=== PATIENT | male | born 1985 | race Hispanic/Latino ===

== ENCOUNTER 2024-06-19 21:52 | Inpatient (IN) | payer OTHER ==
[~2024-06-19] VITALS: Ht 167.6 cm; Wt 72.0 kg
[2024-06-19 22:07] LABS: BASOPHILS # (AUTO) 0.01 K/uL (0.00-0.20); BASOPHILS % (AUTO) 0.1 % (0.0-5.0); HEMATOCRIT 40.3 % (42-54); IMMATURE GRANULOCYTE ABSOLUTE 0.03 K/uL (0-1); LYMPHOCYTES # (AUTO) 0.3 K/uL (1.0-4.8); LYMPHOCYTES % (AUTO) 2.8 % (21.0-51.0); MEAN CORPUSCULAR HGB CONC 34.7 g/dL (32.0-36.0); MEAN CORPUSCULAR VOLUME 83.6 fL (79-99); MONOCYTES # (AUTO) 0.3 K/uL (0.1-1.0); MONOCYTES % (AUTO) 2.9 % (3.0-13.0); NEUTROPHILS # (AUTO) 10.2 K/uL (1.8-7.7); NEUTROPHILS % (AUTO) 93.9 % (40.0-77.0); PLATELET COUNT (AUTO) 208 K/uL (130-400); RED BLOOD CELL COUNT(AUTO) 4.82 MIL/uL (4.50-6.20); RED CELL DISTRIBUTION WIDTH 12.2 % (11.0-15.5); WHITE BLOOD COUNT (AUTO) 10.9 K/uL (4.8-10.8)
--- NOTE | 2024-06-19 22:17 | ERN ---
ED Note History of Present Illness Stated Complaint: FEVER, ABDOMINAL PAIN Chief Complaint: Abdominal Pain Time Seen by MD: 21:59 Dictation: The patient is a 38-year-old male with a medical history of asthma who arrived at the emergency department via EMS. He reports experiencing generalized abdominal pain that began at 8:00 a.m. today. The patient indicates that the pain is primarily located in the epigastric region, although he also experiences discomfort in both the right and left lumbar areas. He characterizes the pain as sharp and shooting, rating it as 10 out of 10, with radiation to the back. The patient believes the pain is related to the kidneys and mentions having vomited once today, but he denies experiencing any diarrhea. He also reports fever, chills has no history of smoking, alcohol, or drug use. He denies any chest pain, sore throat, dizziness or lightheadedness. Allergies: Coded Allergies: No Known Drug Allergies (Unverified Allergy, Unknown, 06/19/24) Past Medical History Past Medical History: Asthma, Kidney Stone Surgical History: None Review of System Dictation REVIEW OF SYSTEMS CONSTITUTIONAL: Denies fevers, chills, or night sweats. No unintentional weight loss reported. NEUROLOGICAL: Denies headache, amaurosis fugax, motor weakness, sensory deficit, vertigo/spinning sensation, gait abnormalities, or tremors. ENT: No hearing loss, otalgia, otorrhea, rhinitis, rhinorrhea, hoarseness, or sore throat. CARDIOVASCULAR: Denies any exertional angina, dyspnea on exertion, orthopnea, paroxysmal nocturnal dyspnea, palpitations, life-threatening arrhythmias, claudication. PULMONARY: Denies any shortness of breath, cough, phlegm/sputum, hemoptysis, pleuritic chest pain. SLEEP: Denies morning headaches, daytime somnolence or napping. Denies difficulty falling asleep, staying asleep, waking from sleep. Denies knowledge of snoring. GASTROINTESTINAL: c/o generalized abdominal pain, Denies any type of dysphagia to either liquids or solids. Denies nausea, vomiting, pyrosis, early satiety, abdominal pain, diarrhea, constipation, or changes in stool consistency or caliber. Denies coffee-ground emesis, hematemesis, hematochezia, or melanotic stools. GENITOURINARY: Denies frequency, urgency, nocturia, hematuria or incontinence (Storage/Irritative symptoms.) Low urinary stream, straining to void, urinary intermittency or hesitancy, splitting of the voiding stream, terminal dribbling. ENDOCRINOLOGIC: Denies polyuria, polydipsia, polyphagia or heat/cold intolerances. HEMATOLOGIC: Denies thrombophilia/previous clots, or coagulopathy/bleeding disorders. ONCOLOGIC: Denies personal history of malignancy. DERMATOLOGIC: Denies rashes or pruritus. PSYCHIATRIC: Denies any suicidal or homicidal ideation. Denies hallucinations. Initial Vital Sign VS Vital Signs Date Time Temp Pulse Resp B/P (MAP) Pulse Ox O2 Delivery O2 Flow Rate FiO2 06/19/24 21:55 103.3 120 20 126/80 100 Nasal Cannula 4.0 06/19/24 22:06 36 10:30 The patient was examined in ED 8 Physical Exam Dictation PHYSICAL EXAM GENERAL APPEARANCE: The patient is awake, alert, and oriented, appears in some distress. NEUROLOGICAL: Cranial nerves II-XII grossly intact. Motor is 5/5 in bilateral upper and lower extremities proximal to distal. No sensory deficits. HEENT: Face is symmetric. Pupils are equal and reactive. Extraocular movements are intact. NECK: Supple. No JVD. No thyromegaly. No submental, submandibular, pre-/postauricular, occipital or supraclavicular lymphadenopathy. CHEST: Normal chest expansion. No Telemetry. LUNGS: Absence of any rales, rhonchi or any wheezing. CARDIOVASCULAR: Regular. S1 and S2 normal. No appreciable rubs, murmurs or gallops. ABDOMEN: Soft, nontender, and nondistended. There is no rebound, voluntary guarding, or rigidity. : Deferred. No [place]. EXTREMITIES: Non-edematous and not cyanotic. No clubbing. Good capillary refill. SKIN: No skin breakdown. Results (Laboratory/Radiology) Laboratory/Radiology Laboratory Tests Test 06/19/24 21:52 06/19/24 21:59 06/19/24 22:24 Influenza Type A Antigen Negative For Type A Influenza Type B Antigen Negative For Type B SARS-CoV-2, RNA, NAAT NEGATIVE SARS CoV-2 Group A Streptococcus Rapid negative (NEGATIVE) White Blood Count 10.9 K/uL (4.8-10.8) H Red Blood Count 4.82 MIL/uL (4.50-6.20) Hemoglobin 14.0 g/dL (14.0-18.0) Hematocrit 40.3 % (42-54) L Mean Corpuscular Volume 83.6 fL (79-99) Mean Corpuscular Hemoglobin 29.0 pg (27.0-33.0) Mean Corpuscular Hemoglobin Concent 34.7 g/dL (32.0-36.0) Red Cell Distribution Width 12.2 % (11.0-15.5) Platelet Count 208 K/uL (130-400) Mean Platelet Volume 9.3 fL (7.5-10.5) Immature Granulocyte % (Auto) 0.3 % (0-1) Neutrophils (%) (Auto) 93.9 % (40.0-77.0) H Lymphocytes (%) (Auto) 2.8 % (21.0-51.0) L Monocytes (%) (Auto) 2.9 % (3.0-13.0) L Eosinophils (%) (Auto) 0.0 % (0.0-8.0) Basophils (%) (Auto) 0.1 % (0.0-5.0) Neutrophils # (Auto) 10.2 K/uL (1.8-7.7) H Lymphocytes # (Auto) 0.3 K/uL (1.0-4.8) L Monocytes # (Auto) 0.3 K/uL (0.1-1.0) Eosinophils # (Auto) 0.00 K/uL (0.00-0.70) Basophils # (Auto) 0.01 K/uL (0.00-0.20) Absolute Immature Granulocyte (auto 0.03 K/uL (0-1) Nucleated Red Blood Cells 0.0 % (0.0-0.19) White Cell Morphology Comment See comments Sodium Level 136 mmol/L (136-145) Potassium Level 3.9 mmol/L (3.5-5.1) Chloride Level 101 mmol/L (101-111) Carbon Dioxide Level 29 mmol/L (21-32) Blood Urea Nitrogen 15 mg/dL (7-18) Creatinine 1.2 mg/dL (0.5-1.3) Glomerular Filtration Rate Calc 79 mL/min (>90) Random Glucose 103 mg/dL (70-105) Lactic Acid Level 1.2 mmol/L (0.8-2.5) Total Calcium 8.6 mg/dL (8.5-10.1) Total Creatine Kinase 120 U/L (21-232) Troponin I High Sensitivity 13 ng/L (4-75) Lipase 37 U/L (16-77) Urine Color YELLOW (YELLOW) Urine Appearance CLEAR (CLEAR) Urine pH 7.5 (5.0-8.0) Urine Specific [place] 1.025 (1.001-1.031) Urine Protein 20 mg/dL (NEGATIVE) H Urine Glucose (UA) NEGATIVE mg/dL (NEGATIVE) Urine Ketones 20 mg/dL (NEGATIVE) H Urine Occult Blood NEGATIVE (NEGATIVE) Urine Nitrate NEGATIVE (NEGATIVE) Urine Bilirubin NEGATIVE mg/dL (NEGATIVE) Urine Urobilinogen 0.2 mg/dL (0.2-1.0) Urine Leukocyte Esterase NEGATIVE Giuseppe/uL Urine RBC 6-10 /HPF (0-1) H Urine WBC 0-1 /HPF (0-1) Urine Squamous Epithelial Cells RARE /HPF (0-2) Urine Bacteria None /HPF (None Seen) Urine Opiates Screen NEGATIVE (NEGATIVE) Urine Barbiturates Screen NEGATIVE (NEGATIVE) Urine Phencyclidine Screen NEGATIVE (NEGATIVE) Urine Amphetamines Screen NEGATIVE (NEGATIVE) Urine Benzodiazepines Screen NEGATIVE (NEGATIVE) Urine Cocaine Screen NEGATIVE (NEGATIVE) Urine Marijuana (THC) Screen NEGATIVE (NEGATIVE) EKG Comment: Rate 115, sinus tachycardia Atrial premature complexes Nonspecific T-wave abnormalities VT [address] Scan Comment: [place] [address] IMAGING REPORT Signed PATIENT: KWAKU LNOG MR#: [id number] : 1985 SEX: M AGE: 38 LOCATION: ED ORDER 23 STATUS: REG REPORT#: [id number] SERVICE 21 REASON: Generalized abdominal pain, sepsis ORDERING PHYSICIAN: POOJA CHAMORRO MD PROCEDURE: ABD PEL WO - CT ABDOMEN/PELVIS W/O CONTRAST CT ABDOMEN/PELVIS W/O CONTRAST HISTORY: Abdominal pain COMPARISON: None TECHNIQUE: Multiple sequential axial images of the abdomen and pelvis were obtained from the dome of the diaphragm through symphysis pubis. Patient was not given contrast through intravenous route. Oral contrast was not given. FINDINGS: Tiny left pleural effusion is seen. There are bilateral pulmonary infiltrates. Degenerative changes of the thoracolumbar spine are present. The heart is not enlarged. Liver measures 17 cm. The liver, spleen, adrenal glands and pancreas are unremarkable. There is no evidence of hydronephrosis bilaterally. No evidence of renal stone is seen. Fecal material is seen in the colon. There are normal size retroperitoneal and mesenteric lymph nodes. No ascites is seen. No CT evidence of acute appendicitis is seen. Pelvic sidewalls are symmetric bilaterally. Bladder is poorly distended. IMPRESSION: 1. Bilateral pulmonary infiltrates. Fecal material in the colon. CT was performed with one or more following dose reduction techniques: automated exposure control, adjustment of the mA and kv according to patient's size, or use of a iterative reconstruction technique. DICTATED BY: TRELL HORNE MD DATE: 06/19/242337 ELECTRONICALLY SIGNED BY: TRELL HORNE MD DATE: 06/19/24 [address] [place] [address] IMAGING REPORT Signed PATIENT: KWAKU LONG MR#: [id number] : 1985 SEX: M AGE: 38 LOCATION: [facility] ORDER 10 STATUS: REG REPORT#: [id number] SERVICE 10 REASON: Pneumonia ORDERING PHYSICIAN: POOJA CHAMORRO MD PROCEDURE: CHEST WO - CT CHEST W/O CONTRAST CT CHEST W/O CONTRAST HISTORY: Pneumonia COMPARISON: None TECHNIQUE: Multiple sequential axial images of the chest were obtained from the thoracic inlet through upper abdomen. Patient was not given contrast through intravenous route. FINDINGS: There are bilateral lower lobe and right middle lobe pulmonary infiltrates. Bronchiectasis changes are seen. Tiny left pleural effusion is seen. Fatty changes of the liver are noted There is no evidence of pneumothorax. There are normal size mediastinal and hilar lymph nodes. The heart is not enlarged. Degenerative changes of the thoracolumbar spine are present. There is no evidence of adrenal nodule. IMPRESSION: 1. Right lower lobe and bilateral lower lobe pulmonary infiltrates. CT was performed with one or more following dose reduction techniques: automated exposure control, adjustment of the mA and kv according to patient's size, or use of a iterative reconstruction technique. DICTATED BY: TRELL HORNE MD DATE: 06/19/242327 ELECTRONICALLY SIGNED BY: TRELL HORNE MD DATE: 06/19/242340 ED Course ED Course Orders Procedure Category Date Status Time Iv Insertion CPOE 06/19/24 Transmitted 21:53 Pulse Ox(Continuous) RT 06/19/24 Transmitted 21:53 Vital Signs Per CPOE 06/19/24 Transmitted Routine 21:53 12 Lead Ekg Tracing- EKG 06/19/24 Logged Technical 21:53 Cbc With Differential LAB 06/19/24 Complete 21:53 Blood Cult KHALIDA 06/19/24 In Process 21:53 Urinalysis Profile LAB 06/19/24 Complete 21:53 Culture Urine KHALIDA 06/19/24 In Process 21:53 Creatine Kinase, Total LAB 06/19/24 Complete 21:53 Troponin I High LAB 06/19/24 Complete Sensitivity 21:53 Lactic Acid LAB 06/19/24 Complete 21:53 Basic Metabolic Panel LAB 06/19/24 Complete 21:53 Influenza Type A & B, LAB 06/19/24 Complete Rapid 21:54 Rapid (Group A Strep) LAB 06/19/24 Complete 21:54 Covid Rna Naat LAB 06/19/24 Complete 21:54 Lipase LAB 06/19/24 Complete 22:12 0.9%Nacl 1000ml (Ns PHA 06/19/24 Complete 1000ml) 22:30 Ketorolac PHA 06/19/24 Complete Tromethamine 15mg/Ml 22:30 Drug Screen Urine LAB 06/19/24 Complete 22:17 Ct Abdomen/Pelvis W/O CT 06/19/24 Resulted Contrast 22:22 Acetaminophen 500mg PHA 06/19/24 Complete Tab (Tylenol 500mg T 23:00 Ct Chest W/O Contrast CT 06/19/24 Resulted 23:11 Ceftriaxone 1g Vial PHA 06/19/24 Complete (Rocephine 1g Inj) 23:30 Azithromycin 500mg+Ns PHA 06/19/24 Complete 250ml (Azithromyci 23:30 Admit Orders ADM 06/20/24 Transmitted 00:01 Cefepime Hcl 1 Gm PHA 06/20/24 In Process Vial (Maxipime 1 Gm Vi 00:30 Doxycycline Hyclate PHA 06/20/24 In Process (Doxycycline Hyclate 09:00 Acetaminophen 325 Tab PHA 06/20/24 In Process (Tylenol 325mg Tab 00:30 Acetaminophen 325 Tab PHA 06/20/24 In Process (Tylenol 325mg Tab 00:30 Enoxaparin Sodium 30 PHA 06/20/24 In Process Mg/0.3 Ml (Lovenox) 09:00 Regular DIET 06/20/24 Transmitted Breakfast Cbc Without LAB 06/20/24 Logged Differential 06:00 Basic Metabolic Panel LAB 06/20/24 Logged 06:00 Magnesium LAB 06/20/24 Logged 06:00 Ipratropium/Albuterol PHA 06/20/24 In Process Neb (Duoneb) 00:30 Ondansetron 4mg Inj PHA 06/20/24 In Process (Zofran 4mg Inj) 00:30 Current Medications Medications (Trade) Dose Ordered Sig/Asha Route PRN Reason Start Time Stop Time Status Last Admin Dose Admin Acetaminophen (TYLenol 500MG TAB) 1,000 mg ONCE ONCE PO 06/19/24 23:00 06/19/24 23:01 DC 06/19/24 22:35 Azithromycin 250 ml @ 250 mls/hr ONCE ONCE IVPB 06/19/24 23:30 06/20/24 00:29 DC 06/19/24 23:29 Ceftriaxone Sodium (ROCEphine 1G INJ) 1 gm ONCE ONCE IVPB 06/19/24 23:30 06/19/24 23:31 DC 06/19/24 23:29 Ketorolac Tromethamine (toRADol) 15 mg ONCE ONCE IM 06/19/24 22:30 06/19/24 22:31 DC 06/19/24 22:29 Sodium Chloride 1,000 ml @ 0 mls/hr ONCE ONCE IV 06/19/24 22:30 06/19/24 22:31 DC 06/19/24 22:29 Vital Signs Date Time Temp Pulse Resp B/P (MAP) Pulse Ox O2 Delivery O2 Flow Rate FiO2 06/20/24 00:52 99.3 99 20 107/67 98 Nasal Cannula* 2 28 06/19/24 23:39 100.2 100 20 110/63 98 Nasal Cannula* 2 28 06/19/24 22:35 103.3 06/19/24 22:06 103.3 120 20 126/80 100 Nasal Cannula* 4 36 06/19/24 21:55 103.3 120 20 126/80 100 Nasal Cannula 4.0 10:45 The patient was assessed in the Emergency Department 8. Upon arrival, the vital signs recorded were a temperature of 103.3F, a pulse rate of 120 beats per minute, a blood pressure of 126/80 mmHg, and a respiratory rate of 20 breaths per minute. To assist with respiratory support, the patient was started with 4 liters of oxygen. As the patient is a [place] speaker, the nurse facilitated communication through translation. The patient reported experiencing generalized abdominal pain. Although the patient appeared alert and responsive to questions, signs of discomfort were evident. He was in [place] and currently in a process of getting deported from [facility] due to immigration issues. The patient meets the criteria for SIRS. We will proceed with laboratory tests and radiological examinations to exclude any potential infectious processes. Based on the results of these tests, we will determine the necessity for any urgent treatment or inpatient admission. In the interim, we will provide treatment with Tylenol and an intravenous fluid bolus. Continuous monitoring of the patient's condition will be maintained. 11:30 The labs were reviewed and showed WBC 10.9, neutrophils percentage 93.9, lymphocyte percentage 2.[address] abdomen and pelvis showed bilateral pulmonary infiltrates, CT chest showed bilateral lower lobe pulmonary infiltrates. The patient meets sepsis criteria given initial presentation and the source of infection being identified. The patient will require inpatient hospitalization for the management of pneumoniae. Dr. Salazar was informed about the patient and he accepted the admission. Medical Decision Making [facility] Differential diagnosis: Sepsis, Bilateral pneumonia, Acute respiratory failure Rationale: Tests considered and ordered secondary to shared decision making include: Previous outside records reviewed: Old ER visits. Risk of complication and/or morbidity or mortality of patient management: None Medications-Per medication reconciliation Need for hospitalization: Patient does meet criteria for hospitalization. Need for emergency major/minor surgery: No There are no social concerns with this patient. Prescription drug management Prescriptions will include symptomatic care Patient's prior external medical records from other ER visits were reviewed by me as indicated. Prior testing and results from previous visits were reviewed. Prior tests were taken into account with medical decision making and resource utilization, independent historian/historians were used to obtain complete medical history. I independently interpreted the test that were performed, results were reviewed by me and considered findings on radiology if ordered. DX & DISP Disposition: Inpatient Departure Impression: Primary Impression: Sepsis Additional Impressions: Pneumonia, Acute respiratory failure Critical Time: 30 minutes (Critical Care Procedure NoteAuthorized and Performed by: meTotal critical care time: Approximately 36 minutesDue to a high probability of clinically significant, life threatening deterioration, the patient required my highest level of preparedness to intervene emergently and I personally spent this critical care time directly and personally managing the patient. This critical care time included obtaining a history; examining the patient; pulse oximetry; ordering and review of studies; arranging urgent treatment with development of a management plan; evaluation of patient's response to treatment; frequent reassessment; and, discussions with other providers.This critical care time was performed to assess and manage the high probability of imminent, life-threatening deterioration that could result in multi-organ failure. It was exclusive of separately billable procedures and junior ting other patients and teaching time.Please see MDM section and the rest of the note for further information on patient assessment and treatment.) Condition: Stable I have reviewed, & agreed with my scribe's, documentation. I have reviewed the case, and I agree with, Diagnosis and Plan I have examined patient, & reviewed all documents, & agreed W/ the Diagnosis, and Plan I performed a substantive portion of the visit. I have reviewed and personally made and approve the management plan that is documented in the notes by myself with ISAEL/resident. I acknowledged full responsibility for the patient's management plan. 38-year-old male age with a pneumonia confirmed by CT. Meets sepsis criteria. Received IV fluids and antibiotics. On sepsis focused re- evaluation after the fluids and antibiotics patient was stable perfusion. Admitted for IV antibiotics. POOJA CHAMORRO MD Jun 19, 2024 22:17 JILL GREENWOOD DO Jun 20, 2024 01:09
[2024-06-19 22:20] LABS: CREATININE 1.2 mg/dL (0.5-1.3); POTASSIUM 3.9 mmol/L (3.5-5.1)
[2024-06-19 22:20] LABS: RAPID GROUP A STREP negative (NEGATIVE)
[2024-06-19 22:26] LABS: SARS-CoV-2, RNA, NAAT NEGATIVE SARS CoV-2 (NEGATIVE)
[2024-06-19] MEDS: ketOROlac 15MG/ML VIAL (15MG/ML) IM ONE (22:29)
[2024-06-19] MEDS: 0.9%NACL 1000ML 1,000 ML IV ONE (22:29)
[2024-06-19 22:30] LABS: INFLUENZA TYPE A Negative For Type A (NEGATIVE); INFLUENZA TYPE B Negative For Type B (NEGATIVE)
[2024-06-19] MEDS: acetaMINOPHEN 500 MG TABLET PO ONE (22:35)
[2024-06-19 22:53] LABS: APPEARANCE,URINE CLEAR (CLEAR); BILIRUBIN,URINE NEGATIVE (NEGATIVE); COLOR,URINE YELLOW (YELLOW); GLUCOSE, URINE (UA) NEGATIVE (NEGATIVE); KETONES,URINE 20 mg/dL (NEGATIVE); LEUKOCYTE ESTERASE ,URINE NEGATIVE Leu/uL (NEGATIVE); NITRATE,URINE NEGATIVE (NEGATIVE); OCCULT BLOOD,URINE NEGATIVE (NEGATIVE); PH,URINE 7.5 (5.0-8.0); PROTEIN,URINE 20 mg/dL (NEGATIVE); UROBILINOGEN,URINE 0.2 mg/dL (0.2-1.0)
[2024-06-19 22:56] LABS: ADD UA MICROSCOPIC YES
[2024-06-19 22:57] LABS: MUCUS,URINE MOD LPF (None Seen); SQUAMOUS EPITHELIAL CELL,UR RARE /HPF (0-2); WBC,URINE 0-1 /HPF (0-1)
[2024-06-19 23:01] LABS: AMPHET/METH SCREEN,URINE NEGATIVE (NEGATIVE); BARBITURATE SCREEN, URINE NEGATIVE (NEGATIVE); BENZODIAZEPINES SCREEN,URINE NEGATIVE (NEGATIVE); CANNABINOID SCREEN,URINE NEGATIVE (NEGATIVE); COCAINE SCREEN,URINE NEGATIVE (NEGATIVE); OPIATE SCREEN,URINE NEGATIVE (NEGATIVE); PHENCYCLIDINE SCREEN,URINE NEGATIVE (NEGATIVE)
--- NOTE | 2024-06-19 23:21 | NUR ---
back from ct scan
[2024-06-19] MEDS: AZITHROMYCIN 500MG+NS 250ML 250 ML IVPB ONE (23:29)
[2024-06-19] MEDS: cefTRIAXone 1G VIAL IVPB ONE (23:29)
--- NOTE | 2024-06-19 23:41 | HMCIMG ---
CT CHEST W/O CONTRAST HISTORY: Pneumonia COMPARISON: None TECHNIQUE: Multiple sequential axial images of the chest were obtained from the thoracic inlet through upper abdomen. Patient was not given contrast through intravenous route. FINDINGS: There are bilateral lower lobe and right middle lobe pulmonary infiltrates. Bronchiectasis changes are seen. Tiny left pleural effusion is seen. Fatty changes of the liver are noted There is no evidence of pneumothorax. There are normal size mediastinal and hilar lymph nodes. The heart is not enlarged. Degenerative changes of the thoracolumbar spine are present. There is no evidence of adrenal nodule. IMPRESSION: 1. Right lower lobe and bilateral lower lobe pulmonary infiltrates. CT was performed with one or more following dose reduction techniques: automated exposure control, adjustment of the mA and kv according to patient's size, or use of a iterative reconstruction technique.
--- NOTE | 2024-06-19 23:54 | HMCIMG ---
CT ABDOMEN/PELVIS W/O CONTRAST HISTORY: Abdominal pain COMPARISON: None TECHNIQUE: Multiple sequential axial images of the abdomen and pelvis were obtained from the dome of the diaphragm through symphysis pubis. Patient was not given contrast through intravenous route. Oral contrast was not given. FINDINGS: Tiny left pleural effusion is seen. There are bilateral pulmonary infiltrates. Degenerative changes of the thoracolumbar spine are present. The heart is not enlarged. Liver measures 17 cm. The liver, spleen, adrenal glands and pancreas are unremarkable. There is no evidence of hydronephrosis bilaterally. No evidence of renal stone is seen. Fecal material is seen in the colon. There are normal size retroperitoneal and mesenteric lymph nodes. No ascites is seen. No CT evidence of acute appendicitis is seen. Pelvic sidewalls are symmetric bilaterally. Bladder is poorly distended. IMPRESSION: 1. Bilateral pulmonary infiltrates. Fecal material in the colon. CT was performed with one or more following dose reduction techniques: automated exposure control, adjustment of the mA and kv according to patient's size, or use of a iterative reconstruction technique.
[2024-06-20] VITALS (14 sets, daily range): BP systolic 116–147; BP diastolic 65–89; PULSE 98–125; RESP 18–21; TEMP 98.9–102.9; O2SAT 96–100
[2024-06-20] MEDS: ceFEPime HCL 1 GM VIAL IVPB SCH (00:52)
--- NOTE | 2024-06-20 01:05 | NUR ---
REPORT GIVEN TO SUSHMA GARZON
[2024-06-20] MEDS: 0.9%NACL 1000ML 1,000 ML IV ONE (01:10)
[2024-06-20] MEDS: acetaMINOPHEN 325 MG TAB PO PRN ×2 (02:19→08:36)
[2024-06-20 06:50] LABS: CREATININE 1.1 mg/dL (0.5-1.3); MAGNESIUM 1.8 mg/dL (1.80-2.40); POTASSIUM 4.3 mmol/L (3.5-5.1)
[2024-06-20 06:55] LABS: HEMATOCRIT 40.2 % (42-54); MEAN CORPUSCULAR HEMOGLOBIN 28.8 pg (27.0-33.0); MEAN CORPUSCULAR HGB CONC 34.6 g/dL (32.0-36.0); MEAN CORPUSCULAR VOLUME 83.4 fL (79-99); RED BLOOD CELL COUNT(AUTO) 4.82 MIL/uL (4.50-6.20); RED CELL DISTRIBUTION WIDTH 12.3 % (11.0-15.5); WHITE BLOOD COUNT (AUTO) 8.7 K/uL (4.8-10.8)
--- NOTE | 2024-06-20 07:01 | EKG ---
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
[2024-06-20] MEDS: DOXYCYCLINE HYCLATE 100 MG TABLET PO SCH (08:35)
[2024-06-20] MEDS: ENOXAPARIN SODIUM 30 MG/0.3 ML SQ SCH (08:37)
--- NOTE | 2024-06-20 13:18 | NUR ---
LESLYP Per Jordana Leija Ballroom Dancer, patient will be returning to [facility] upon discharge. Transportation is prearranged. Addendum: 06/20/24 at 1320 by LILLY CARDONA RN CM Amended: Links added.
--- NOTE | 2024-06-20 19:12 | HP ---
DATE OF SERVICE: 06/20/2024. PRESENTING COMPLAINT: Cough and fever. HISTORY OF PRESENT ILLNESS: This is a 38-year-old male originally from [place] with history of asthma, nephrolithiasis, who presented to the hospital with above complaint. The patient was brought in from [facility] with cough and shortness of breath. The patient also complained of some fever. T-max in the emergency room was 103. The patient complained of abdominal pain which he localized to the epigastric area. CT of the abdomen and pelvis shows constipation and bilateral infiltrate. CT of the chest shows bilateral infiltrates. Urine toxicology was negative. Influenza and COVID antigen came back negative. PAST MEDICAL HISTORY: * Asthma. * Nephrolithiasis. PAST SURGICAL HISTORY: Left foot surgery. ALLERGIES: No known drug allergy. HOME MEDICATIONS: None. SOCIAL HISTORY: The patient is originally from [place]. The patient drinks. Denies tobacco or illicit drug use. FAMILY HISTORY: Noncontributory. REVIEW OF SYSTEMS: CONSTITUTIONAL: Positive for fever and chills. No weight loss or night sweats. EYES: No eye pain, no photophobia or diplopia. HENT: No sore throat, no rhinorrhea or earache. NECK: No neck pain or neck swelling. RESPIRATORY: Positive for cough. No hemoptysis or pleuritic pain. CARDIOVASCULAR: No chest pain, no palpitation or orthopnea. GASTROINTESTINAL: Positive for epigastric pain. No nausea, no vomiting. No diarrhea. GENITOURINARY: No dysuria, urgency, or urinary frequency. CENTRAL NERVOUS SYSTEM: No headache, dyspnea, or slurred speech. PSYCHIATRY: No depression. No suicidal ideation. PHYSICAL EXAMINATION: GENERAL: Young male, awake. VITAL SIGNS: Temperature 103.3, pulse 98, respiratory rate 22. EYES: No icterus. Pupils equal and reactive. HENT: No oral thrush seen. Moist oral mucosa. NECK: Supple. No JVD or thyromegaly. LUNGS: Good air entry. No rales, no rhonchi. CARDIOVASCULAR SYSTEM: S1, S2 regular. No murmur heard. ABDOMEN: Full, soft, nontender. Bowel sound is present. CENTRAL NERVOUS SYSTEM: Awake, alert, oriented x 3. No focal deficits. SKIN: No rashes, no itchiness. LYMPHATIC: No peripheral lymphadenopathy. BACK: No deformity, no pressure ulcer. MUSCULOSKELETAL: No joint swelling, erythema, or tenderness. LABORATORY DATA: Sodium 136, potassium 3.9, BUN 15, creatinine 1.2. WBC 10.9, hemoglobin 14.0, platelets 208. Influenza antigen negative. Urine toxicology negative. Urinalysis negative. RADIOLOGY: CT chest showed bilateral infiltrate. ASSESSMENT: A 38-year-old male presenting with fever and cough. CURRENT PROBLEMS: Include: * Sepsis. * Pneumonia. * Shortness of breath. PLAN: * Admit the patient to medical floor. * Start the patient on cefepime. * Start the patient on doxycycline. * Tylenol as needed for pain and fever. * Zofran as needed for nausea and vomiting. * Regular diet. * Monitor electrolytes and correct as needed. TID: [id number] RECEIPT: [id number]
[2024-06-20] MEDS: ondanSETRON 4MG INJ IVP PRN (21:02)
[2024-06-21] VITALS (12 sets, daily range): BP systolic 113–129; BP diastolic 55–82; PULSE 91–108; RESP 17–20; TEMP 97.7–102.9; O2SAT 96–99
[2024-06-21 05:27] LABS: BASOPHILS # (AUTO) 0.01 K/uL (0.00-0.20); BASOPHILS % (AUTO) 0.2 % (0.0-5.0); HEMATOCRIT 40.9 % (42-54); IMMATURE GRANULOCYTE ABSOLUTE 0.02 K/uL (0-1); LYMPHOCYTES # (AUTO) 0.9 K/uL (1.0-4.8); LYMPHOCYTES % (AUTO) 17.8 % (21.0-51.0); MEAN CORPUSCULAR HEMOGLOBIN 28.8 pg (27.0-33.0); MEAN CORPUSCULAR VOLUME 84.7 fL (79-99); MONOCYTES # (AUTO) 0.5 K/uL (0.1-1.0); MONOCYTES % (AUTO) 9.1 % (3.0-13.0); NEUTROPHILS # (AUTO) 3.7 K/uL (1.8-7.7); NEUTROPHILS % (AUTO) 72.5 % (40.0-77.0); PLATELET COUNT (AUTO) 180 K/uL (130-400); RED BLOOD CELL COUNT(AUTO) 4.83 MIL/uL (4.50-6.20); RED CELL DISTRIBUTION WIDTH 12.2 % (11.0-15.5); WHITE BLOOD COUNT (AUTO) 5.1 K/uL (4.8-10.8)
[2024-06-21 05:53] LABS: ALBUMIN 3.3 g/dL (3.5-5.0); BILIRUBIN,TOTAL 0.5 mg/dL (0.2-1.0); CREATININE 1.3 mg/dL (0.5-1.3); MAGNESIUM 1.7 mg/dL (1.80-2.40); POTASSIUM 3.4 mmol/L (3.5-5.1); TOTAL PROTEIN, SERUM 6.9 g/dL (6.0-8.3)
[2024-06-21] MEDS ORDERED: PoTASSium chloRIDE 20MEQ/100ML 100 ML IV PRN (06:00)
[2024-06-21] MEDS ORDERED: PoTASSium chl 10% ELIXIR 20MEQ 20 MEQ/15 ML UDCUP PO PRN (06:00)
[2024-06-21] MEDS: MAGNESIUM 2GM PREMIX 50ML 50 ML IV PRN (06:35)
[2024-06-21] MEDS: PoTASSium chloRIDE 20MEQ ER 20 MEQ ERTAB PO PRN (06:35)
[2024-06-21] MEDS: IpraTROPium/alBUTERol SULFATE 3 ML SOLUTION IH PRN (07:00)
--- NOTE | 2024-06-21 13:17 | PN ---
INFECTIOUS DISEASE PROGRESS NOTE Date of Service: Jun 21, 2024 SUBJECTIVE: This is a 38-year-old male patient who was admitted for evaluation of fever and cough. On admission to the hospital patient had a fever of 103.3 and the WBC was 10.9. Patient was tested for influenza and COVID-19 results came back negative. A CT of the abdomen and pelvis was done which showed bilateral pulmonary infiltrates. A CT chest confirmed right lower lobe and bilateral lower lobes pulmonary infiltrates. Patient has been started on cefepime and doxycycline. Patient had a low-grade fever of 102.9 at 3:00 a.m. this morning and current temperature is 98.1. The WBC has trended down to 5.1. No reports of nausea or vomiting. We will continue to follow patient's care. PHYSICAL EXAM EYES: Anicteric. Pupils equal and reactive. HENT: No oral thrush seen, moist Oral mucosa. NECK: Supple, no JVD or thyromegaly. LUNGS: Good air entry. No rales, no rhonchi. CARDIOVASCULAR: S1, S2 regular. No murmur heard. ABDOMEN: Soft, non tender, bowel sounds present, no organomegaly. CENTRAL NERVOUS SYSTEM: Awake, alert, oriented x 3. SKIN: No rashes, no swelling. LYMPHATICS: No peripheral lymphadenopathy. MUSCULOSKELETAL: No joint swelling, erythema or tenderness. EXTREMITIES: No cyanosis or clubbing. Left Great toe amputation. BACK: No deformity, no pressure ulcer. GENITOURINARY: No dysuria or hematuria. Vital Sign (Last 12 Hours) 06/21/24 06/21/24 06/21/24 06/21/24 03:41 03:55 04:00 05:25 Temp 100.0 102.9 100.0 98.8 Pulse 108 Resp 17 B/P (MAP) 126/79 Pulse Ox 96 O2 Delivery Room Air 06/21/24 06/21/24 06/21/24 06/21/24 07:02 07:03 07:50 11:01 Temp 98.2 Pulse 96 96 95 96 Resp 18 18 18 18 B/P (MAP) 120/82 Pulse Ox 98 O2 Delivery N/A Room Air Room Air FiO2 21 06/21/24 11:29 Temp 98.1 Pulse 104 Resp 18 B/P (MAP) 121/63 Pulse Ox 97 O2 Delivery Room Air Intake & Output (last 24hrs) 06/20/24 06/20/24 06/21/24 15:00 23:00 07:00 Intake Total 50.0 ml Balance 50.0 ml LABS: Laboratory: Test 06/21/24 04:28 06/19/24 22:24 06/19/24 21:59 06/19/24 21:52 Range/Units White Blood Count 5.1 # 4.8-10.8 K/uL Red Blood Count 4.83 4.50-6.20 MIL/uL Hemoglobin 13.9 L 14.0-18.0 g/dL Hematocrit 40.9 L 42-54 % Mean Corpuscular Volume 84.7 79-99 fL Mean Corpuscular Hemoglobin 28.8 27.0-33.0 pg Mean Corpuscular Hemoglobin Concent 34.0 32.0-36.0 g/dL Red Cell Distribution Width 12.2 11.0-15.5 % Platelet Count 180 130-400 K/uL Mean Platelet Volume 10.2 7.5-10.5 fL Immature Granulocyte % (Auto) 0.4 0-1 % Neutrophils (%) (Auto) 72.5 40.0-77.0 % Lymphocytes (%) (Auto) 17.8 L 21.0-51.0 % Monocytes (%) (Auto) 9.1 3.0-13.0 % Eosinophils (%) (Auto) 0.0 0.0-8.0 % Basophils (%) (Auto) 0.2 0.0-5.0 % Neutrophils # (Auto) 3.7 1.8-7.7 K/uL Lymphocytes # (Auto) 0.9 L 1.0-4.8 K/uL Monocytes # (Auto) 0.5 0.1-1.0 K/uL Eosinophils # (Auto) 0.00 0.00-0.70 K/uL Basophils # (Auto) 0.01 0.00-0.20 K/uL Absolute Immature Granulocyte (auto 0.02 0-1 K/uL Nucleated Red Blood Cells 0.0 0.0-0.19 % Sodium Level 140 136-145 mmol/L Potassium Level 3.4 L 3.5-5.1 mmol/L Chloride Level 104 101-111 mmol/L Carbon Dioxide Level 27 21-32 mmol/L Blood Urea Nitrogen 11 7-18 mg/dL Creatinine 1.3 0.5-1.3 mg/dL Glomerular Filtration Rate Calc 72 >90 mL/min Random Glucose 76 70-105 mg/dL Total Calcium 8.3 L 8.5-10.1 mg/dL Magnesium Level 1.70 L 1.80-2.40 mg/dL Total Bilirubin 0.5 0.2-1.0 mg/dL Aspartate Amino Transf (AST/SGOT) 38 H 10-37 U/L Alanine Aminotransferase (ALT/SGPT) 35 12-78 U/L Alkaline Phosphatase 50 50-136 U/L Total Protein 6.9 6.0-8.3 g/dL Albumin 3.3 L 3.5-5.0 g/dL Urine Color YELLOW YELLOW Urine Appearance CLEAR CLEAR Urine pH 7.5 5.0-8.0 Urine Specific [place] 1.025 1.001-1.031 Urine Protein 20 H NEGATIVE mg/dL Urine Glucose (UA) NEGATIVE NEGATIVE mg/dL Urine Ketones 20 H NEGATIVE mg/dL Urine Occult Blood NEGATIVE NEGATIVE Urine Nitrate NEGATIVE NEGATIVE Urine Bilirubin NEGATIVE NEGATIVE mg/dL Urine Urobilinogen 0.2 0.2-1.0 mg/dL Urine Leukocyte Esterase NEGATIVE NEGATIVE Giuseppe/uL Urine RBC 6-10 H 0-1 /HPF Urine WBC 0-1 0-1 /HPF Urine Squamous Epithelial Cells RARE 0-2 /HPF Urine Bacteria None None Seen /HPF Urine Opiates Screen NEGATIVE NEGATIVE Urine Barbiturates Screen NEGATIVE NEGATIVE Urine Phencyclidine Screen NEGATIVE NEGATIVE Urine Amphetamines Screen NEGATIVE NEGATIVE Urine Benzodiazepines Screen NEGATIVE NEGATIVE Urine Cocaine Screen NEGATIVE NEGATIVE Urine Marijuana (THC) Screen NEGATIVE NEGATIVE White Cell Morphology Comment See comments Lactic Acid Level 1.2 0.8-2.5 mmol/L Total Creatine Kinase 120 21-232 U/L Troponin I High Sensitivity 13 4-75 ng/L Lipase 37 16-77 U/L Influenza Type A Antigen Negative For Type A NEGATIVE Influenza Type B Antigen Negative For Type B NEGATIVE SARS-CoV-2, RNA, NAAT NEGATIVE SARS CoV-2 NEGATIVE Group A Streptococcus Rapid negative NEGATIVE DIAGNOSTICS / RADIOLOGY: ATIENT: KWAKU LONG MR#: [id number] : 1985 SEX: M AGE: 38 LOCATION: [facility] ORDER [id number] STATUS: REG ER REPORT#: [id number] SERVICE 231 REASON: Pneumonia ORDERING PHYSICIAN: POOJA CHAMORRO MD PROCEDURE: CHEST WO - CT CHEST W/O CONTRAST CT CHEST W/O CONTRAST HISTORY: Pneumonia COMPARISON: None TECHNIQUE: Multiple sequential axial images of the chest were obtained from the thoracic inlet through upper abdomen. Patient was not given contrast through intravenous route. FINDINGS: There are bilateral lower lobe and right middle lobe pulmonary infiltrates. Bronchiectasis changes are seen. Tiny left pleural effusion is seen. Fatty changes of the liver are noted There is no evidence of pneumothorax. There are normal size mediastinal and hilar lymph nodes. The heart is not enlarged. Degenerative changes of the thoracolumbar spine are present. There is no evidence of adrenal nodule. IMPRESSION: 1. Right lower lobe and bilateral lower lobe pulmonary infiltrates. CT was performed with one or more following dose reduction techniques: automated exposure control, adjustment of the mA and kv according to patient's size, or use of a iterative reconstruction technique. DICTATED BY: TRELL HORNE MD DATE: 06/19/242327 ASSESSMENT: Pneumonia. Sepsis. Hypokalemia. History of asthma. PLAN: Continue cefepime IV. Continue doxycycline p.o. Continue DVT prophylaxis. We will continue monitoring and replacing electrolytes. This case was reviewed and discussed with my supervising physician and the above assessment and plan was formulated and agreed upon. ATTESTATION BY PHYSICIAN I have seen and examined the patient. I reviewed the documentation, medical decision making, and treatment plan as noted by the mid-level provider above. I agree with the findings and plan of care. FRANK CARDONA MD, MIRTA L FREIGHT CLERK Jun 21, 2024 13:17
[2024-06-22] VITALS (10 sets, daily range): BP systolic 102–116; BP diastolic 62–79; PULSE 69–94; RESP 18–19; TEMP 98–98.3; O2SAT 98–99
--- NOTE | 2024-06-22 14:41 | PN ---
INFECTIOUS DISEASE PROGRESS NOTE Date of Service: Jun 22, 2024 SUBJECTIVE: Vital Sign (Last 12 Hours) 06/22/24 06/22/24 06/22/24 06/22/24 04:00 07:17 07:17 08:00 Temp 98.1 98.1 Pulse 91 74 74 69 Resp 18 18 18 18 B/P (MAP) 116/72 108/62 Pulse Ox 96 98 O2 Delivery Room Air N/A Room Air Room Air FiO2 21 06/22/24 06/22/24 06/22/24 06/22/24 08:26 11:31 11:32 12:00 Temp 98.2 Pulse 94 94 91 Resp 18 18 19 B/P (MAP) 102/67 Pulse Ox 98 100 O2 Delivery Room Air* N/A Room Air Room Air O2 Flow Rate 0 FiO2 21 21 Intake & Output (last 24hrs) 06/21/24 06/21/24 06/22/24 15:00 23:00 07:00 Intake Total 900 ml Balance 900 ml LABS: Laboratory: Test 06/21/24 04:28 Range/Units White Blood Count 5.1 # 4.8-10.8 K/uL Red Blood Count 4.83 4.50-6.20 MIL/uL Hemoglobin 13.9 L 14.0-18.0 g/dL Hematocrit 40.9 L 42-54 % Mean Corpuscular Volume 84.7 79-99 fL Mean Corpuscular Hemoglobin 28.8 27.0-33.0 pg Mean Corpuscular Hemoglobin Concent 34.0 32.0-36.0 g/dL Red Cell Distribution Width 12.2 11.0-15.5 % Platelet Count 180 130-400 K/uL Mean Platelet Volume 10.2 7.5-10.5 fL Immature Granulocyte % (Auto) 0.4 0-1 % Neutrophils (%) (Auto) 72.5 40.0-77.0 % Lymphocytes (%) (Auto) 17.8 L 21.0-51.0 % Monocytes (%) (Auto) 9.1 3.0-13.0 % Eosinophils (%) (Auto) 0.0 0.0-8.0 % Basophils (%) (Auto) 0.2 0.0-5.0 % Neutrophils # (Auto) 3.7 1.8-7.7 K/uL Lymphocytes # (Auto) 0.9 L 1.0-4.8 K/uL Monocytes # (Auto) 0.5 0.1-1.0 K/uL Eosinophils # (Auto) 0.00 0.00-0.70 K/uL Basophils # (Auto) 0.01 0.00-0.20 K/uL Absolute Immature Granulocyte (auto 0.02 0-1 K/uL Nucleated Red Blood Cells 0.0 0.0-0.19 % Sodium Level 140 136-145 mmol/L Potassium Level 3.4 L 3.5-5.1 mmol/L Chloride Level 104 101-111 mmol/L Carbon Dioxide Level 27 21-32 mmol/L Blood Urea Nitrogen 11 7-18 mg/dL Creatinine 1.3 0.5-1.3 mg/dL Glomerular Filtration Rate Calc 72 >90 mL/min Random Glucose 76 70-105 mg/dL Total Calcium 8.3 L 8.5-10.1 mg/dL Magnesium Level 1.70 L 1.80-2.40 mg/dL Total Bilirubin 0.5 0.2-1.0 mg/dL Aspartate Amino Transf (AST/SGOT) 38 H 10-37 U/L Alanine Aminotransferase (ALT/SGPT) 35 12-78 U/L Alkaline Phosphatase 50 50-136 U/L Total Protein 6.9 6.0-8.3 g/dL Albumin 3.3 L 3.5-5.0 g/dL [facility]IS[facility] Jun 22, 2024 14:40
--- NOTE | 2024-06-22 16:35 | NUR ---
DISCHARGE PATIENT HAS BEEN DISCHARGED FROM HOSPITAL AND HAS BEEN RELEASED INTO [facility] WHO ORIGINALLY BROUGHT PATIENT IN. PIV REMOVED, PRESSURE GAUZE AND TAPE APPLIED TO SITE. SPOKE WITH CHARGE NURSE AT FACILITY TO LET THEM KNOW ABOUT PATIENT BEING RELEASED AND STARTED ON LEVOFLOXACIN 750MG PO X7 DAYS. SCRIPT HAS ALSO BEEN FAXED OVER TO FACILITY. PATIENT VERBALIZES UNDERSTANDING OF DISCHARGE PAPERWORK.
--- NOTE | 2024-06-22 19:14 | NUR ---
DISCHARGE PATIENT HAS BEEN ESCORTED OUT BY [facility]. PATIENT HAS BEEN DISCHARGE FROM HOSPITAL.
--- NOTE | 2024-06-22 19:19 | DS ---
Discharge Summary Hospital Course This is a 38-year-old male originally from [facility] with history of asthma, nephrolithiasis, who [facility] with fever, cough and shortness of breath. T-max in the emergency room was 103.3. The patient complained of abdominal pain which he localized to the epigastric area. CT of the abdomen and pelvis showed constipation and bilateral infiltrate. CT of the chest showed bilateral infiltrates. Urine toxicology was negative. Influenza and COVID antigen came back negative. Patient was treated with cefepime IV and doxycycline p.o. Patient has remained afebrile for 48 hours and the cough improved. Patient will be discharged back to the nursing home center today. New prescription for levofloxacin 750 mg p.o. daily x 7 days was written. FINAL DISCHARGE DIAGNOSIS: Pneumonia. Sepsis, resolved. Hypokalemia. History of asthma. PLAN: Discharge patient back to the nursing home center today. New prescription for levofloxacin 750 mg x 7 days. This case was reviewed and discussed with my supervising physician and the above assessment and plan was formulated and agreed upon. AP[facility] QUISPE Jun 22, 2024 19:19
== END 2024-06-22 19:14 | DRG 871 ==
LOC: EEVIPCON 21:52 → EDH 21:52 → EDHIP 06-20 00:01 → 3AH 06-20 01:07
PROVIDERS: ADMIT Internal Medicine Infectious Disease; ATTEND Internal Medicine Infectious Disease
DX: A41.9 Sepsis, unspecified organism (principal); J18.9 Pneumonia, unspecified organism; Z20.822 Contact with and (suspected) exposure to COVID-19; E87.6 Hypokalemia; J45.909 Unspecified asthma, uncomplicated; K59.00 Constipation, unspecified; Z87.442 Personal history of urinary calculi; Z79.899 Other long term (current) drug therapy
CPT/HCPCS: 36415; 71250; 74176; 80048; 80053; 80305; 81001; 82550; 83605; 83690; 83735; 84484; 85025; 85027; 87040; 87086; 87635; 87804; 87880; 93005; 94640; 94664; 96372; 99291; G0378; J0456; J0692; J0696; J1650; J1885; J2405; J3475; J7030